=== PATIENT | female | born 1935 | race Caucasian/White ===

== ENCOUNTER 2021-04-04 11:33 | Outpatient (CLI) | payer MEDICARE | END 2021-04-04 23:59 | disposition home or self-care (01) | LOC: RAD 11:33 | PROVIDERS: ATTEND Internal Medicine | DX: I63.9 Cerebral infarction, unspecified (principal); G40.909 Epilepsy, unspecified, not intractable, without status epilepticus | CPT/HCPCS: 70551; 95816 ==

== ENCOUNTER 2023-07-08 17:34 | Inpatient (IN) | payer MEDICARE ==
[~2023-07-08] VITALS: Ht 160 cm; Wt 74.3 kg
[~2023-07-08 17:34] MED LIST: DRON400T6 PO; FURO20TA4 PO; LAN0.125T PO; LEVO75TA7 PO; LOTE8.3D RIGHTEYE; OMEP20CA16 PO; ROPI0.2544 PO; SPIR25TA5 PO; ZAR2.5T PO; ZOLP5TAB8 PO
[2023-07-08 18:47] LABS: BASOPHILS % (AUTO) 0.4 % (0-1); EOSINOPHILS % (AUTO) 0.1 % (0-6); HEMATOCRIT 36.4 % (35.0-45.0); HEMOGLOBIN 11.5 g/dl (12.0-16.0); LYMPHOCYTES # (AUTO) 0.2 X10'3 (1.1-4.8); LYMPHOCYTES % (AUTO) 5.9 % (21-51); MEAN CORPUSCULAR HEMOGLOBIN 30.5 PG (27.0-31.0); MEAN CORPUSCULAR HGB CONC 31.6 g/dL (33.0-36.5); MEAN CORPUSCULAR VOLUME 96.7 FL (78-98); MEAN PLATELET VOLUME 11.5 FL (7.4-10.4); MONOCYTES # (AUTO) 0.6 X10'3 (0-0.9); MONOCYTES % (AUTO) 15.6 % (2-12); NEUTROPHILS # (AUTO) 2.9 X10'3 (1.8-7.7); RED BLOOD COUNT 3.76 X10'6 (4.20-5.60); RED CELL DISTRIBUTION WIDTH 16.9 % (11.5-14.5); WHITE BLOOD COUNT 3.7 X10'3 (4.5-11.0)
[2023-07-08 19:02] LABS: ALANINE AMINOTRANSFERASE 47 U/L (12-78); ALBUMIN/GLOBULIN RATIO 0.8 (1.1-1.5); ALKALINE PHOSPHATASE 216 IU/L (46-116); ANION GAP 13 (8-16); ASPARTATE AMINO TRANSFERASE 55 U/L (10-37); BILIRUBIN,TOTAL 3.5 MG/DL (0.1-1.0); BLOOD UREA NITROGEN 80 MG/DL (7-18); BUN/CREATININE RATIO 32.8 (10.0-20.0); CALCIUM 9.1 MG/DL (8.5-10.1); CHLORIDE 94 MMOL/L (99-107); CREATININE 2.44 MG/DL (0.40-0.90); GLUCOSE 128 MG/DL (70-104); POTASSIUM 5.2 MMOL/L (3.5-5.1); SODIUM 128 MMOL/L (135-145); TOTAL CARBON DIOXIDE 21.1 MMOL/L (24-32); TOTAL PROTEIN 6.6 G/DL (6.4-8.2); eCRCL 14 ML/MIN; eGFR 19 ML/MIN
[2023-07-08 19:13] LABS: PRO BRAIN NATRIURETIC PEPTIDE 9942 PG/ML (0-450)
[2023-07-08 19:42] LABS: PLATELET COUNT 37 X10'3 (140-440)
[2023-07-08 20:01] LABS: ANISOCYTOSIS 1+; NUCLEATED RED BLOOD CELLS 1 /100WBC (0-0); PLATELET ESTIMATE DECREASED; TOTAL CELLS COUNTED 100
[2023-07-08 20:02] LABS: ACANTHOCYTES FEW; BURR CELLS 1+; ELLIPTOCYTES FEW; HYPOCHROMASIA 1+; LARGE PLATELETS FEW; POLYCHROMASIA 1+; SCHISTOCYTES FEW
[2023-07-08] MEDS ORDERED: magnesium 4gm in 100ml NS 100 ML IV PRN (21:00)
[2023-07-08] MEDS ORDERED: ondansetron/PF 4mg/2ml inj IV PRN (21:00)
[2023-07-08] MEDS ORDERED: potassium Cl 40MEQ/1/2NS 520ml 520 ML IV PRN (21:00)
[2023-07-08] MEDS ORDERED: magnesium Cl slow-release 64mg tablet PO PRN (21:00)
[2023-07-08] MEDS ORDERED: HYDROcodone/acetaminophen 5mg/325mg tablet PO PRN (21:00)
[2023-07-08] MEDS ORDERED: acetaminophen 325mg tablet PO PRN (21:00)
[2023-07-08] MEDS ORDERED: potassium Cl 20 mEq SR tablet PO PRN ×2 (21:00)
[2023-07-08] MEDS ORDERED: sodium polystyrene sulfonate 15gm/60ml oral suspension PO ONE (21:00)
[2023-07-08] MEDS ORDERED: magnesium 2GM in 50ml NS 50 ML IV PRN (21:00)
[2023-07-08] MEDS ORDERED: dextrose 5%-1/2 normal saline 1,000 ML IV SCH (21:00)
[2023-07-08] MEDS ORDERED: mag hydrox/Alum hydrox/simeth 30ml oral suspension PO PRN (21:00)
[2023-07-08] MEDS ORDERED: morphine 2 MG/ML inj. syringe IV PRN (21:00)
[2023-07-08] MEDS ORDERED: HYDROcodone/acetaminophen 10/325mg tab PO PRN (21:00)
[2023-07-08] MEDS ORDERED: magnesium hydroxide 30ml (MOM) UD suspension PO PRN (21:00)
--- NOTE | 2023-07-08 21:52 | NUR ---
PT PLACED ON A PERIWICK CATH
--- NOTE | 2023-07-08 23:45 | NUR ---
Received report from Clinton from ED.
[2023-07-09] VITALS (9 sets, daily range): BP systolic 87–138; BP diastolic 31–107; PULSE 64–100; RESP 12–20; TEMP 96.3–98.7; O2SAT 86–100
--- NOTE | 2023-07-09 | NUR ---
Pt admitted from the ER for increased SOB r/t CHF, ARF and she is also admitted for Hyperkalemia. Pt was accompanied to floor via 2 ER personnel and transported via gurney. Pt is A+Ox3-4. Pt is bed bound, has 4+ weeping edema to all four extremities, large periorbital bruising to her face. Pt has a 20G to the LFA with D5 1/2NS running at 60ml/hr, Pt uses a periwick for urination. VS: T-96.8 temporal, P-71, RR-19, O2 sat.-95 on 5L oxygen, BP- 93/50, denies pain at this time. Pt on tele number 22 in a junctional rhythm per telecommunications manager. Pt is cold to the touch, but states that is her normal.
[2023-07-09 00:39] LABS: BILIRUBIN,URINE NEGATIVE (Neg); CLARITY,URINE CLEAR (Clear); COLOR,URINE YELLOW (Yellow); GLUCOSE, URINE NEGATIVE (Neg); KETONES,URINE NEGATIVE (Neg); LEUKOCYTE ESTERASE ,URINE NEGATIVE (Neg); NITRITES, URINE NEGATIVE (Neg); OCCULT BLOOD,URINE TRACE-INTACT (Neg); PH,URINE 5.5 (4.8-8.0); PROTEIN,URINE TRACE mg/dl (Neg); UROBILINOGEN,URINE 0.2 E.U/dL (0.2-1.0)
[2023-07-09 00:57] LABS: UA COLLECTION TYPE STRAIGHT CATH
[2023-07-09 00:59] LABS: BACTERIA,URINE NONE SEEN /HPF (Neg); RBC,URINE 0-2 /HPF (0-2); WBC,URINE 0-4 /HPF (0-4)
[2023-07-09 01:00] LABS: SQUAMOUS EPITHELIAL CELL,UR FEW /LPF (FEW)
--- NOTE | 2023-07-09 02:32 | NUR ---
TEST AND RESEARCH REACTOR OPERATOR went into pt room to do 0200 VS, pt stated she was not feeling good and then has an emesis x1, Nurse gave PRN dose zofran 4mg IV. Will continue to monitor.
--- NOTE | 2023-07-09 02:57 | NUR ---
Provider paged PAGER ID: [phone] MESSAGE: PCU [id number]. Anabel Campos. Pt had an episode of emesis, Zofran 4mg given, pt states ineffective, also pt requesting to be tested for covid since she is not feeling well and has had possible exposure. rianna advise. Kristyn WATTS [phone]
[2023-07-09] MEDS ORDERED: proCHLORperazine 10mg tablet PO PRN (03:10)
--- NOTE | 2023-07-09 04:26 | NUR ---
Provider gave new orders for covid test and compazine 10mg PO Q6h for N/V.
--- NOTE | 2023-07-09 06:30 | NUR ---
Patient in room PCU 3016. I have received report from Kristyn WATTS and had the opportunity to ask questions and assume patient care.
[2023-07-09 06:38] LABS: BASOPHILS % (AUTO) 0.1 % (0-1); HEMOGLOBIN 11.2 g/dl (12.0-16.0); LYMPHOCYTES # (AUTO) 0.2 X10'3 (1.1-4.8); MEAN PLATELET VOLUME 10.7 FL (7.4-10.4); MONOCYTES # (AUTO) 0.7 X10'3 (0-0.9); NEUTROPHILS # (AUTO) 3.4 X10'3 (1.8-7.7); WHITE BLOOD COUNT 4.4 X10'3 (4.5-11.0)
--- NOTE | 2023-07-09 06:38 | NUR ---
Problems reprioritized. Patient report given, questions answered & plan of care reviewed with Christa HUDSON. Pt stable at shift change.
[2023-07-09 06:41] LABS: EOSINOPHILS % (AUTO) 0.1 % (0-6); HEMATOCRIT 34.8 % (35.0-45.0); LYMPHOCYTES % (AUTO) 4.5 % (21-51); MEAN CORPUSCULAR HEMOGLOBIN 30.6 PG (27.0-31.0); MEAN CORPUSCULAR HGB CONC 32.1 g/dL (33.0-36.5); MEAN CORPUSCULAR VOLUME 95.3 FL (78-98); MONOCYTES % (AUTO) 16.7 % (2-12); NEUTROPHILS % (AUTO) 78.6 % (42-75); RED BLOOD COUNT 3.65 X10'6 (4.20-5.60); RED CELL DISTRIBUTION WIDTH 16.8 % (11.5-14.5)
[2023-07-09 06:45] LABS: PLATELET COUNT 42 X10'3 (140-440)
[2023-07-09 07:12] LABS: ALANINE AMINOTRANSFERASE 50 U/L (12-78); ALBUMIN 2.9 G/DL (3.4-5.0); ALBUMIN/GLOBULIN RATIO 0.9 (1.1-1.5); ALKALINE PHOSPHATASE 221 IU/L (46-116); ANION GAP 14 (8-16); ASPARTATE AMINO TRANSFERASE 59 U/L (10-37); BILIRUBIN,TOTAL 3.2 MG/DL (0.1-1.0); BLOOD UREA NITROGEN 83 MG/DL (7-18); BUN/CREATININE RATIO 31.4 (10.0-20.0); CALCIUM 9.1 MG/DL (8.5-10.1); CHLORIDE 95 MMOL/L (99-107); CREATININE 2.64 MG/DL (0.40-0.90); GLUCOSE 131 MG/DL (70-104); POTASSIUM 5.4 MMOL/L (3.5-5.1); PRO BRAIN NATRIURETIC PEPTIDE 11062 PG/ML (0-450); SODIUM 130 MMOL/L (135-145); TOTAL CARBON DIOXIDE 21.5 MMOL/L (24-32); TOTAL PROTEIN 6.3 G/DL (6.4-8.2); eCRCL 13 ML/MIN; eGFR 17 ML/MIN
--- NOTE | 2023-07-09 07:13 | NUR ---
PAGER ID: [phone] MESSAGE: [id number] Andres Critical PLT 42 up from 37 yesterday. Thank you Christa HUDSON [phone]
[2023-07-09 07:22] LABS: ACANTHOCYTES FEW; ANISOCYTOSIS 1+; LARGE PLATELETS FEW; PLATELET ESTIMATE DECREASED; POLYCHROMASIA FEW
[2023-07-09 07:23] LABS: BURR CELLS FEW
[2023-07-09] MEDS: heparin, porcine 5000 units/ml vial SQ SCH ×2 (08:00→20:00)
[2023-07-09] MEDS: K and/or MAG REPLACEMENT MC SCH ×2 (08:00→20:00)
[2023-07-09] MEDS: docusate sod 100mg capsule PO SCH ×2 (08:34→20:15)
[2023-07-09] MEDS ORDERED: furosemide 40mg/4ml inj IV ONE (11:35)
[2023-07-09] MEDS ORDERED: zolpidem 5mg tablet PO PRN (11:45)
[2023-07-09 14:14] LABS: PHOSPHORUS 5.3 MG/DL (2.3-4.5)
--- NOTE | 2023-07-09 18:31 | NUR ---
Problems reprioritized. Patient report given, questions answered & plan of care reviewed with Kristyn WATTS.
[2023-07-09] MEDS: ROPINIRole 0.25mg tablet PO SCH (20:16)
[2023-07-09] MEDS: dronedarone hcl 400mg tablet PO SCH (20:16)
[2023-07-09] MEDS: furosemide 40mg/4ml inj IV SCH (20:23)
--- NOTE | 2023-07-09 20:41 | NUR ---
Provider paged PAGER ID: [phone] MESSAGE: PCU [id number]. Anabel Campos. pt has a non productive cough t hat has worsened since last night. do you want a chest x-ray or just continue to monitor? Please advise. Kristyn WATTS [phone]
[2023-07-10] VITALS (8 sets, daily range): BP systolic 85–102; BP diastolic 47–63; PULSE 60–74; RESP 16–20; TEMP 97.4–98.7; O2SAT 91–98
--- NOTE | 2023-07-10 00:06 | NUR ---
Nurse spoke with Provider Edil regarding pure wick not working consistently, nurse bladder scanned pt and result was >461ml. Provider gave order for Sin catheter to be placed. Pt also complaining of non productive cough, Provider ordered chest x-ray to r/o PNA. Nurse read back both orders with provider.
[2023-07-10] MEDS ORDERED: LidoCAINE 2% Topical Jelly 11mL syringe TOP ONE (00:10)
--- NOTE | 2023-07-10 02:11 | NUR ---
Nurse placed a 16Fr indwelling redd catheter into pt as she had >461ml in bladder and the pure wick was working off and on. Pt tolerated procedure well. no c/o pain or discomfort.
--- NOTE | 2023-07-10 06:25 | NUR ---
Problems reprioritized. Patient report given, questions answered & plan of care reviewed with Becky WATTS. Pt stable at shift change.
--- NOTE | 2023-07-10 06:41 | NUR ---
Patient in room PCU 3016. I have received report from Kristyn WATTS and had the opportunity to ask questions and assume patient care.
[2023-07-10 06:59] LABS: BASOPHILS % (AUTO) 0.1 % (0-1); EOSINOPHILS % (AUTO) 0.1 % (0-6); HEMOGLOBIN 11.5 g/dl (12.0-16.0); LYMPHOCYTES # (AUTO) 0.3 X10'3 (1.1-4.8); LYMPHOCYTES % (AUTO) 4.4 % (21-51); MEAN CORPUSCULAR HEMOGLOBIN 30.2 PG (27.0-31.0); MEAN CORPUSCULAR HGB CONC 31.9 g/dL (33.0-36.5); MEAN CORPUSCULAR VOLUME 94.6 FL (78-98); MONOCYTES # (AUTO) 0.7 X10'3 (0-0.9); MONOCYTES % (AUTO) 11.2 % (2-12); NEUTROPHILS # (AUTO) 5.4 X10'3 (1.8-7.7); NEUTROPHILS % (AUTO) 84.2 % (42-75); RED BLOOD COUNT 3.81 X10'6 (4.20-5.60); WHITE BLOOD COUNT 6.4 X10'3 (4.5-11.0)
[2023-07-10 07:06] LABS: PLATELET COUNT 46 X10'3 (140-440)
[2023-07-10 07:24] LABS: ALANINE AMINOTRANSFERASE 42 U/L (12-78); ALBUMIN 2.6 G/DL (3.4-5.0); ALBUMIN/GLOBULIN RATIO 0.9 (1.1-1.5); ALKALINE PHOSPHATASE 193 IU/L (46-116); ANION GAP 9 (8-16); ASPARTATE AMINO TRANSFERASE 54 U/L (10-37); BILIRUBIN,TOTAL 3.3 MG/DL (0.1-1.0); BLOOD UREA NITROGEN 89 MG/DL (7-18); CALCIUM 8.6 MG/DL (8.5-10.1); CHLORIDE 96 MMOL/L (99-107); GLUCOSE 89 MG/DL (70-104); MAGNESIUM 2.5 MG/DL (1.5-2.4); POTASSIUM 5.2 MMOL/L (3.5-5.1); SODIUM 127 MMOL/L (135-145); TOTAL CARBON DIOXIDE 21.8 MMOL/L (24-32); TOTAL PROTEIN 5.6 G/DL (6.4-8.2); eCRCL 12 ML/MIN; eGFR 17 ML/MIN
[2023-07-10 07:44] LABS: ANISOCYTOSIS 1+; LARGE PLATELETS FEW; NUCLEATED RED BLOOD CELLS 1 /100WBC (0-0); PLATELET ESTIMATE DECREASED; TOTAL CELLS COUNTED 100
[2023-07-10 07:45] LABS: HYPOCHROMASIA 2+; POLYCHROMASIA 1+
[2023-07-10 07:46] LABS: ACANTHOCYTES FEW; BURR CELLS FEW
[2023-07-10] MEDS: dronedarone hcl 400mg tablet PO SCH ×2 (08:00→21:14)
[2023-07-10] MEDS: LOTEPREDNOL ETABONATE RIGHTEYE SCH (08:00)
[2023-07-10] MEDS: K and/or MAG REPLACEMENT MC SCH ×2 (08:00→20:00)
[2023-07-10] MEDS: furosemide 40mg/4ml inj IV SCH ×2 (08:00→20:00)
[2023-07-10] MEDS: docusate sod 100mg capsule PO SCH ×2 (08:56→21:15)
[2023-07-10] MEDS: levoTHYROXINE 75mcg tablet PO SCH (08:57)
[2023-07-10] MEDS: digoxin 125mcg (0.125mg) tablet PO SCH (08:58)
[2023-07-10] MEDS: metolazone 2.5mg tablet PO SCH (09:00)
[2023-07-10] MEDS: pantoprazole 40mg Tablet.DR PO SCH (09:02)
[2023-07-10 11:05] LABS: PHOSPHORUS 5.2 MG/DL (2.3-4.5)
--- NOTE | 2023-07-10 12:05 | NUR ---
PRESSURE ULCER EDUCATION: DEFINITION: A pressure ulcer is an area of skin that breaks down when you stay in one position too long. The constant pressure against the skin reduces the blood flow to that area and the affected tissue dies. CAUSES: "Being bedridden or in a wheelchair "Fragile skin "Having a chronic condition, such as diabetes or vascular disease "Inability to move certain parts of your body without assistance "Older age "Incontinence of urine or stool SYMPTOMS: "A reddened area that DOES NOT turn white when pressed on - this can be the beginning of a pressure ulcer "A blister, deep sore or a crater - these can be advanced pressure ulcers FIRST AID: "Relieve the pressure on this area "Keep the area clean and dry "Call your primary doctor if you see any of the above symptoms "DO NOT massage the area "DO NOT use a donut shaped or ring shaped pillow- these actually interfere with the blood flow and cause complications PREVENTION: "Check for pressure ulcers everyday "Change position at least every two hours to relieve pressure "Use items that help relieve pressure- pillows, sheepskin, foam padding, and powders. "Keep skin clean and dry "Eat healthy well balanced meals "Exercise daily IF YOU SEE ANY OF THESE SYMPTOMS WHILE IN THE HOSPITAL - TELL YOUR NURSE IMMEDIATELY. IF YOU SEE ANY OF THESE SYMPTOMS WHILE AT HOME OR HAVE ANY QUESTIONS OR CONCERNS ABOUT PRESSURE ULCERS - CALL YOUR PRIMARY DOCTOR IMMEDIATELY. Addendum: 07/10/23 at 1205 by Cely Lubin RN Amended: Links added.
[2023-07-10] MEDS ORDERED: furosemide 40mg/4ml inj IV ONE (18:30)
--- NOTE | 2023-07-10 18:32 | NUR ---
patient walked with PT see note has had low B/P all day see note, retook 103/59. ok to give lasix per Dr munoz . Report given to shad WATTS
[2023-07-10] MEDS: ROPINIRole 0.25mg tablet PO SCH (21:15)
--- NOTE | 2023-07-10 21:21 | NUR ---
Student Medication Administration: For this medication-pass time frame, all medication were reviewed, dispensed, administered and documented per hospital policy by Perri BEAN [facility].
--- NOTE | 2023-07-10 23:36 | NUR ---
Student documentation: I have reviewed interventions, assessments performed and documented by Perri BEAN [facility].
[2023-07-11] VITALS (8 sets, daily range): BP systolic 84–100; BP diastolic 47–77; PULSE 78–119; RESP 1–22; TEMP 97.2–98.1; O2SAT 90–99
--- NOTE | 2023-07-11 06:21 | NUR ---
Problems reprioritized. Patient report given, questions answered & plan of care reviewed with Tania WATTS. Addendum: 07/11/23 at 0623 by Faith Taet RN Amended: Links added.
[2023-07-11 06:43] LABS: BASOPHILS % (AUTO) 0.1 % (0-1); EOSINOPHILS % (AUTO) 0.3 % (0-6); HEMATOCRIT 32.4 % (35.0-45.0); HEMOGLOBIN 10.6 g/dl (12.0-16.0); LYMPHOCYTES # (AUTO) 0.3 X10'3 (1.1-4.8); LYMPHOCYTES % (AUTO) 4.2 % (21-51); MEAN CORPUSCULAR HEMOGLOBIN 30.5 PG (27.0-31.0); MEAN CORPUSCULAR HGB CONC 32.5 g/dL (33.0-36.5); MEAN CORPUSCULAR VOLUME 93.8 FL (78-98); MEAN PLATELET VOLUME 10.6 FL (7.4-10.4); MONOCYTES # (AUTO) 0.8 X10'3 (0-0.9); MONOCYTES % (AUTO) 11.7 % (2-12); NEUTROPHILS # (AUTO) 6.1 X10'3 (1.8-7.7); NEUTROPHILS % (AUTO) 83.7 % (42-75); RED BLOOD COUNT 3.46 X10'6 (4.20-5.60); WHITE BLOOD COUNT 7.2 X10'3 (4.5-11.0)
--- NOTE | 2023-07-11 06:50 | NUR ---
Lab notified me of a critical lab value of platelets [address] Davis was notified at 0715
[2023-07-11 06:51] LABS: PLATELET COUNT 43 X10'3 (140-440)
[2023-07-11 07:16] LABS: ALANINE AMINOTRANSFERASE 44 U/L (12-78); ALBUMIN 2.4 G/DL (3.4-5.0); ALBUMIN/GLOBULIN RATIO 0.8 (1.1-1.5); ALKALINE PHOSPHATASE 196 IU/L (46-116); ANION GAP 10 (8-16); ASPARTATE AMINO TRANSFERASE 50 U/L (10-37); BILIRUBIN,TOTAL 2.6 MG/DL (0.1-1.0); BLOOD UREA NITROGEN 90 MG/DL (7-18); CALCIUM 8.3 MG/DL (8.5-10.1); CHLORIDE 94 MMOL/L (99-107); CREATININE 2.73 MG/DL (0.40-0.90); GLUCOSE 87 MG/DL (70-104); MAGNESIUM 2.4 MG/DL (1.5-2.4); POTASSIUM 4.4 MMOL/L (3.5-5.1); SODIUM 126 MMOL/L (135-145); TOTAL CARBON DIOXIDE 21.7 MMOL/L (24-32); TOTAL PROTEIN 5.3 G/DL (6.4-8.2); eCRCL 12 ML/MIN; eGFR 16 ML/MIN
[2023-07-11] MEDS: K and/or MAG REPLACEMENT MC SCH ×2 (07:37→20:00)
[2023-07-11 07:48] LABS: ANISOCYTOSIS 1+; PLATELET ESTIMATE DECREASED
[2023-07-11 07:50] LABS: TARGET CELLS 1+
[2023-07-11 07:51] LABS: ACANTHOCYTES FEW; HYPOCHROMASIA 1+; POLYCHROMASIA FEW
[2023-07-11] MEDS: furosemide 40mg/4ml inj IV SCH (08:00)
[2023-07-11] MEDS: LOTEPREDNOL ETABONATE RIGHTEYE SCH (08:00)
[2023-07-11] MEDS: dronedarone hcl 400mg tablet PO SCH ×5 (08:41→19:18)
[2023-07-11] MEDS: metolazone 2.5mg tablet PO SCH ×3 (08:41→09:09)
[2023-07-11] MEDS: levoTHYROXINE 75mcg tablet PO SCH (08:42)
[2023-07-11] MEDS: pantoprazole 40mg Tablet.DR PO SCH (08:42)
[2023-07-11] MEDS: docusate sod 100mg capsule PO SCH ×2 (08:42→19:14)
--- NOTE | 2023-07-11 09:20 | NUR ---
Noted pt with a low Tony of 10. Skin is intact per WO note. Will continue to follow. Addendum: 07/11/23 at [address] Amended: Links added.
[2023-07-11] MEDS ORDERED: albumin (human) 25% 100 ML IV solution IV ONE ×2 (09:50)
--- NOTE | 2023-07-11 09:50 | NUR ---
Dr Gutierres notified of pts low blood pressure of 77/[address] advised to give 25% Albumin 300ml once
[2023-07-11 11:24] LABS: APTT 33 SECONDS (22-32); INR 1.4 INR; PROTHROMBIN TIME 14.9 SECONDS (9.0-12.0)
[2023-07-11] MEDS: midodrine 5mg tablet PO SCH (15:53)
--- NOTE | 2023-07-11 18:20 | NUR ---
Patient in room PCU 3016. I have received report from Cely WATTS and had the opportunity to ask questions and assume patient care.
[2023-07-11] MEDS: TOLVAPTAN 30 MG TABLET PO SCH (19:40)
[2023-07-11] MEDS: ROPINIRole 0.25mg tablet PO SCH (22:11)
[2023-07-12 02:00] VITALS: BP 104/51; PULSE 79; RESP 20; TEMP 98.2; O2SAT 96
--- NOTE | 2023-07-12 03:02 | NUR ---
Page Sent PAGER ID: [phone] MESSAGE: [id number]: Jennifer Campos: pt requesting Miralax for the AM and saline nose spray. thank you. Marisol HUDSON ext [phone]
[2023-07-12] MEDS ORDERED: salt irrigation nasal spray 45 ML SPRAY NS PRN (03:05)
--- NOTE | 2023-07-12 06:45 | NUR ---
Patient in room PCU 3016. I have received report from Marisol HUDSON and had the opportunity to ask questions and assume patient care.
--- NOTE | 2023-07-12 06:54 | NUR ---
I AGREE WITH SPRAY GUN STRIPER'S ASSESSMENT
[2023-07-12 06:55] LABS: BASOPHILS % (AUTO) 0.3 % (0-1); EOSINOPHILS % (AUTO) 0.4 % (0-6); HEMATOCRIT 30.1 % (35.0-45.0); HEMOGLOBIN 9.8 g/dl (12.0-16.0); LYMPHOCYTES # (AUTO) 0.3 X10'3 (1.1-4.8); LYMPHOCYTES % (AUTO) 4.4 % (21-51); MEAN CORPUSCULAR HEMOGLOBIN 30.5 PG (27.0-31.0); MEAN CORPUSCULAR HGB CONC 32.5 g/dL (33.0-36.5); MEAN PLATELET VOLUME 10.7 FL (7.4-10.4); MONOCYTES # (AUTO) 0.7 X10'3 (0-0.9); MONOCYTES % (AUTO) 11.5 % (2-12); NEUTROPHILS % (AUTO) 83.4 % (42-75); RED CELL DISTRIBUTION WIDTH 16.6 % (11.5-14.5)
[2023-07-12 07:00] VITALS: BP 89/57; PULSE 88; RESP 10; TEMP 97.9; O2SAT 96
[2023-07-12 07:12] LABS: ALANINE AMINOTRANSFERASE 37 U/L (12-78); ALBUMIN 3.3 G/DL (3.4-5.0); ALBUMIN/GLOBULIN RATIO 1.4 (1.1-1.5); ALKALINE PHOSPHATASE 179 IU/L (46-116); ANION GAP 10 (8-16); ASPARTATE AMINO TRANSFERASE 36 U/L (10-37); BILIRUBIN,TOTAL 2.6 MG/DL (0.1-1.0); BLOOD UREA NITROGEN 95 MG/DL (7-18); BUN/CREATININE RATIO 33.2 (10.0-20.0); CALCIUM 8.5 MG/DL (8.5-10.1); CHLORIDE 93 MMOL/L (99-107); CREATININE 2.86 MG/DL (0.40-0.90); GLUCOSE 102 MG/DL (70-104); MAGNESIUM 2.7 MG/DL (1.5-2.4); POTASSIUM 4.6 MMOL/L (3.5-5.1); SODIUM 127 MMOL/L (135-145); TOTAL PROTEIN 5.6 G/DL (6.4-8.2); eCRCL 12 ML/MIN; eGFR 16 ML/MIN
[2023-07-12 07:26] LABS: PLATELET COUNT 35 X10'3 (140-440)
--- NOTE | 2023-07-12 07:30 | NUR ---
PAGER ID: [phone] MESSAGE: Andres [id number], Pt has critical lab value PLT count - 35 down from 43 yesterday. Chin [phone]
[2023-07-12 07:48] VITALS: PULSE 85; RESP 20; O2SAT 99
[2023-07-12] MEDS: pantoprazole 40mg Tablet.DR PO SCH (07:48)
[2023-07-12] MEDS: dronedarone hcl 400mg tablet PO SCH (07:49)
[2023-07-12] MEDS: levoTHYROXINE 75mcg tablet PO SCH (07:49)
[2023-07-12] MEDS: midodrine 5mg tablet PO SCH (07:49)
[2023-07-12 07:50] VITALS: PULSE 91
[2023-07-12] MEDS: digoxin 125mcg (0.125mg) tablet PO SCH (07:50)
[2023-07-12] MEDS: docusate sod 100mg capsule PO SCH (07:51)
[2023-07-12 08:00] VITALS: RESP 10; O2SAT 96
[2023-07-12] MEDS: K and/or MAG REPLACEMENT MC SCH (08:00)
[2023-07-12] MEDS: LOTEPREDNOL ETABONATE RIGHTEYE SCH (08:00)
[2023-07-12] MEDS ORDERED: polyethylene glycol 3350 17gm powd pack PO ONE (08:00)
[2023-07-12] MEDS: TOLVAPTAN 30 MG TABLET PO SCH (08:00)
--- NOTE | 2023-07-12 11:32 | NUR ---
Pt has been transferred to [facility] at 1100. Report was called yesterday to the facility and family has been contacted by case management. Pt belongings were sent with pt and Mallorie Cargo took the pt downstairs in a wheelchair.
== END 2023-07-12 11:10 | DRG 291 ==
LOC: ER 17:35 → ED HOLD 21:06 → UNDOADMIN 21:06 → EDBEDREQ 23:45 → ED HOLD 23:59 → PCU 3S 23:59
PROVIDERS: ADMIT Internal Medicine; ATTEND Family Medicine
PROC: 0W9B30Z Drainage of Left Pleural Cavity with Drainage Device, Percutaneous Approach (ICD-10-PCS; principal; 2023-07-09)
PROC: 0W9930Z Drainage of Right Pleural Cavity with Drainage Device, Percutaneous Approach (ICD-10-PCS; 2023-07-09)
DX: I13.0 Hypertensive heart and chronic kidney disease with heart failure and stage 1 through stage 4 chronic kidney disease, or unspecified chronic kidney disease (principal); J96.00 Acute respiratory failure, unspecified whether with hypoxia or hypercapnia; N17.9 Acute kidney failure, unspecified; J91.8 Pleural effusion in other conditions classified elsewhere; E87.1 Hypo-osmolality and hyponatremia; D61.818 Other pancytopenia; R64 Cachexia; I48.20 Chronic atrial fibrillation, unspecified; N18.4 Chronic kidney disease, stage 4 (severe); I50.32 Chronic diastolic (congestive) heart failure; I50.813 Acute on chronic right heart failure; I50.9 Heart failure, unspecified; E87.5 Hyperkalemia; I25.10 Atherosclerotic heart disease of native coronary artery without angina pectoris; I50.812 Chronic right heart failure; R73.9 Hyperglycemia, unspecified; Z20.822 Contact with and (suspected) exposure to COVID-19; I27.20 Pulmonary hypertension, unspecified; I65.23 Occlusion and stenosis of bilateral carotid arteries; T50.2X5A Adverse effect of carbonic-anhydrase inhibitors, benzothiadiazides and other diuretics, initial encounter; Y92.89 Other specified places as the place of occurrence of the external cause; Z95.1 Presence of aortocoronary bypass graft; Z90.710 Acquired absence of both cervix and uterus; Z90.722 Acquired absence of ovaries, bilateral; Z95.2 Presence of prosthetic heart valve; Z88.1 Allergy status to other antibiotic agents; Z88.8 Allergy status to other drugs, medicaments and biological substances; Z79.899 Other long term (current) drug therapy; Z68.29 Body mass index [BMI] 29.0-29.9, adult
CPT/HCPCS: 32555; 36415; 70450; 70486; 71045; 71046; 72125; 80053; 81001; 83735; 83880; 84100; 84484; 85007; 85008; 85025; 85610; 85730; 87081; 87811; 93308; 94664; 94668; 94760; 97161; 97530; 97535; 99285; A4314; A6213; A6258; G0378; J1940; J2270; J2405; P9047